=== PATIENT | female | born 1995 | race African-American/Black ===

== ENCOUNTER 2016-04-02 10:36 | Emergency (ER) | payer OTHER ==
[2016-04-02 10:52] VITALS: BP 126/77; PULSE 72; TEMP 98.1; BMI 56.6
--- NOTE | 2016-04-02 11:42 | PDOC ---
History of Present Illness - General Chief Complaint: Cold Symptoms Stated Complaint: SORE THROAT, COUGH Time Seen by Provider: 04/02/16 11:17 - History of Present Illness Initial Comments: 04/02/16 11:42 CHIEF COMPLAINT: sore throat HISTORY OF PRESENT ILLNESS: 20 yo F with no significant PMH presents to ED with sore throat, cough, runny nose x 2 days. Patient also reports mild body aches. Patient denies fever, nausea, vomiting, diarrhea, abdominal/urinary discomfort. No recent travel or sick contacts. PAST MEDICAL HISTORY: Denies past medical history FAMILY HISTORY: Denies SOCIAL HISTORY: Denies tobacco, alcohol, illicit drug use. SURGICAL HISTORY: Denies ALLERGIES: shellfish REVIEW OF SYSTEMS General/Constitutional: Denies fever or chills. Denies weakness, weight change. HEENT: Runny nose, sneezing x 2 days. Denies change in vision. Denies ear pain or discharge. Denies sore throat. Cardiovascular: Denies chest pain or shortness of breath. Respiratory: Nonproductive cough x 2 days. Gastrointestinal: Denies nausea, vomiting, diarrhea or constipation. Denies rectal bleeding. Genitourinary: Denies dysuria, frequency, or change in urination. Musculoskeletal: Body aches. Skin and breasts: Denies rash or easy bruising. Neurologic: Denies headache, vertigo, loss of consciousness, or loss of sensation. PHYSICAL EXAM General Appearance: Well-appearing, appropriately dressed. No apparent distress , no intoxication. HEENT: EOMI, PERRLA, normal ENT inspection, normal voice, TMs normal, pharynx normal. No conjunctival pallor. No photophobia, scleral icterus. Neck: Left anterior cervical lymphadenopathy. Supple. Trachea midline. Respiratory/Chest: Lungs CTAB. No shortness of breath, chest tenderness, respiratory distress, accessory muscle use. No crackles, rales, rhonchi, stridor , wheezing, dullness Cardiovascular: RRR. S1, S2. Gastrointestinal/Abdominal: Normal bowel sounds. Abdomen soft, non-distended. No tenderness or rebound tenderness. No organomegaly, pulsatile mass, guarding , hernia, hepatomegaly, splenomegaly. Integumentary: Appropriate color, dry, warm. 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 Fully oriented, alert. Appropriate mood/affect. Motor strength 5/5. No appreciable EOM palsy, facial droop or sensory deficit. Past History - Past Medical History Allergies/Adverse Reactions: Allergies Allergy/AdvReac Type Severity Reaction Status Date / Time shellfish derived Allergy Hives Verified 04/02/16 11:37 Home Medications: Ambulatory Orders Ibuprofen [Motrin -] 600 mg PO QID PRN #28 tablet 04/02/16 Loratadine [Claritin] 10 mg PO DAILY #10 tablet 04/02/16 Anemia: Yes (SLIGHTLY) Asthma: No Cancer: No Cardiac Disorders: No CVA: No COPD: No CHF: No Dementia: No Diabetes: No GI Disorders: No Disorders: No HTN: No Hypercholesterolemia: No Liver Disease: No Suicide Attempt (Hx): No Seizures: No Thyroid Disease: No - Surgical History Abdominal Surgery: No Appendectomy: No Cardiac Surgery: No Cholecystectomy: Yes GI Surgery: Yes (lap band) Lung Surgery: No Neurologic Surgery: No Orthopedic Surgery: No - Immunization History Immunization Up to Date: Yes - Psycho/Social/Smoking Cessation Hx Anxiety: No Suicidal Ideation: No Smoking Status: No Smoking History: Never smoked Have you smoked in the past 12 months: No Number of Cigarettes Smoked Daily: 0 Information on smoking cessation initiated: No Hx Alcohol Use: No Drug/Substance Use Hx: No Substance Use Type: None Hx Substance Use Treatment: No *Physical Exam - Vital Signs Last Vital Signs Temp Pulse Resp BP Pulse Ox 98.1 F 72 18 126/77 99 04/02/16 10:50 04/02/16 10:50 04/02/16 10:50 04/02/16 10:50 04/02/16 10:50 Medical Decision Making - Medical Decision Making 04/02/16 17:44 20 yo F with no significant PMH presents to ED with sore throat, cough, runny nose x 2 days. Patient also reports mild body aches. -Rapid strep test Rapid strep negative. Clinical presentation consistent with common cold. Will treat conservatively with symptomatic treatments. -Claritin 10 mg po -ibuprofen 600 mg PRN fever/pain Advised patient to take meds as prescribed and f/u with PMD. Advised patient of signs and symptoms for return to ED; patient verbalized understanding and agreed to plan. *DC/Admit/Observation/Transfer Diagnosis at time of Disposition: Cold - Discharge Dispostion Disposition: HOME Condition at time of disposition: Stable Admit: No - Prescriptions Prescriptions: Loratadine [Claritin] 10 mg PO DAILY #10 tablet Ibuprofen [Motrin -] 600 mg PO QID PRN #28 tablet PRN Reason: Fever Or Pain - Referrals Referrals: Aicha Khanna MD [Primary Care Provider] - - Patient Instructions Printed Discharge Instructions: DI for Common Cold Additional Instructions: Please take medications as prescribed and follow up with your primary care doctor. If you experience fever unrelieved by medication, develop nausea, vomiting, diarrhea, chills, headache, or any new or worsening symptoms, please return to the ER.
== END 2016-04-02 12:41 | disposition home or self-care (01) ==
LOC: JERFT 10:36
DX: J00 Acute nasopharyngitis [common cold] (principal)
CPT/HCPCS: 84703; 87070; 87430; 87804; 99281-25

== ENCOUNTER 2021-10-26 13:09 | Emergency (ER) | payer OTHER ==
[2021-10-26 13:28] VITALS: BP 140/97; PULSE 98; RESP 18; TEMP 97.9; BMI 54.6
[2021-10-26] MEDS ORDERED: ASPIRIN 81 MG CHEWABLE TABLETS PO ONE (14:33)
[2021-10-26] MEDS ORDERED: ASPIRIN 81 MG CHEWABLE TABLETS ONE (15:26)
[2021-10-26 16:03] LABS: BASO % 1.1 % (0-2.0); EOS % 0.9 % (0-4.5); HEMATOCRIT 33.1 % (32.4-45.2); HEMOGLOBIN 10.8 GM/dL (10.7-15.3); LYMPH % 35.8 % (8-40); MCH 29.6 pg (25.7-33.7); MCHC 32.7 g/dl (32.0-36.0); MEAN CELL VOLUME 90.5 fl (80-96); MEAN PLT VOLUME 6.7 fl (7.5-11.1); MONO % 6.2 % (3.8-10.2); PLATELET COUNT 430 10^3/uL (134-434); RBC 3.66 M/mm3 (3.60-5.2); RDW 14.8 % (11.6-15.6); WHITE BLOOD COUNT 8.3 K/mm3 (4.0-10.0)
[2021-10-26 16:14] LABS: ALBUMIN 3.7 g/dl (3.4-5.0); CALCIUM 8.7 mg/dL (8.5-10.1)
[2021-10-26 16:15] LABS: BLOOD UREA NITROGEN 9.2 mg/dL (7-18)
[2021-10-26 16:18] LABS: CREATININE 0.6 mg/dL (0.55-1.3)
[2021-10-26 16:19] LABS: BILIRUBIN,TOTAL 0.2 mg/dL (0.2-1); TOT PROT 7.9 g/dl (6.4-8.2)
[2021-10-26 16:22] LABS: INR 1.13 (0.83-1.09)
== END 2021-10-26 21:08 | disposition home or self-care (01) ==
LOC: JER 13:09
DX: R07.89 Other chest pain (principal)
CPT/HCPCS: 0241U-QW; 36415; 71046-TC-FY; 71275-TC; 80053; 83690; 84484; 84703; 85025; 85379; 85610; 93005; 93010; 99284-25; Q9967

== ENCOUNTER 2023-11-08 00:26 | Emergency (ER) | payer OTHER ==
[2023-11-08 00:39] VITALS: BP 140/62; PULSE 80; RESP 16; TEMP 97.7; BMI 55.3
[2023-11-08] MEDS ORDERED: PANTOPRAZOLE SODIUM 40 MG VIAL ONE (00:57)
[2023-11-08] MEDS ORDERED: MAG HYDROX/AL HYDROX/SIMETH 30 ML UNIT-DOSE CUP ONE (00:58)
[2023-11-08] MEDS: SODIUM CHLORIDE 1,000 ML IV ONE (01:03)
[2023-11-08] MEDS: PANTOPRAZOLE SODIUM 40 MG VIAL IVPUSH ONE (01:03)
[2023-11-08] MEDS: MAG HYDROX/AL HYDROX/SIMETH 30 ML UNIT-DOSE CUP PO ONE (01:10)
[2023-11-08 01:36] LABS: HEMATOCRIT 33.4 % (32.4-45.2); HEMOGLOBIN 10.9 GM/dL (10.7-15.3); MCH 29.6 pg (25.7-33.7); MCHC 32.6 g/dl (32.0-36.0); MEAN CELL VOLUME 90.7 fl (80-96); MEAN PLT VOLUME 6.9 fl (7.5-11.1); PLATELET COUNT 441 10^3/uL (134-434); RBC 3.69 M/mm3 (3.60-5.2); RDW 14.4 % (11.6-15.6); WHITE BLOOD COUNT 8.6 K/mm3 (4.0-10.0)
[2023-11-08 01:55] LABS: POTASSIUM 4.4 mmol/L (3.5-5.1)
[2023-11-08 01:57] LABS: ALBUMIN 3.9 g/dl (3.4-5.0); BLOOD UREA NITROGEN 7.1 mg/dL (7-18); CALCIUM 9.2 mg/dL (8.5-10.1); MAGNESIUM 2.2 mg/dL (1.8-2.4)
[2023-11-08] MEDS ORDERED: SIMETHICONE 80 MG TAB.CHEW (FP) ONE (01:58)
[2023-11-08 02:00] LABS: CREATININE 0.7 mg/dL (0.55-1.3)
[2023-11-08 02:02] LABS: BILIRUBIN,TOTAL 0.4 mg/dL (0.2-1); TOT PROT 8.2 g/dl (6.4-8.2)
[2023-11-08] MEDS: SIMETHICONE 80 MG TAB.CHEW (FP) PO STA (02:11)
[2023-11-08] MEDS: HYOSCYAMINE SULFATE 0.125 MG TABLET PO STA (02:17)
[2023-11-08] MEDS ORDERED: ONDANSETRON 4 MG/2 ML VIAL ONE (02:32)
[2023-11-08] MEDS ORDERED: HYDROmorphone HCl 2 MG/ML VIAL ONE (02:32)
[2023-11-08] MEDS: ONDANSETRON 4 MG/2 ML VIAL IVPB ONE (02:40)
[2023-11-08] MEDS: HYDROmorphone HCl 2 MG/ML VIAL SQ STA (02:40)
== END 2023-11-08 05:05 | disposition home or self-care (01) ==
LOC: FER 00:26
PROC: 3E033GC Introduction of Other Therapeutic Substance into Peripheral Vein, Percutaneous Approach (ICD-10-PCS; principal; 2023-11-08)
PROC: 3E033GC Introduction of Other Therapeutic Substance into Peripheral Vein, Percutaneous Approach (ICD-10-PCS; 2023-11-08)
PROC: 3E0337Z Introduction of Electrolytic and Water Balance Substance into Peripheral Vein, Percutaneous Approach (ICD-10-PCS; 2023-11-08)
DX: R10.13 Epigastric pain (principal); R10.10 Upper abdominal pain, unspecified
CPT/HCPCS: 36415; 74019-TC-FY; 74177-TC; 80053; 81025; 83605; 83735; 85027; 99285-25; Q9967